=== PATIENT | female | born 1955 | race Caucasian/White ===

== ENCOUNTER → 2017-05-15 | Outpatient (CLI) | payer MEDICARE ==
--- NOTE | 2017-05-15 21:41 | US ---
EXAMINATION TYPE: US kidneys/renal and bladder DATE OF EXAM: 05/15/2017 COMPARISON: NONE CLINICAL HISTORY: N18.3 Chronic Kidney disease stage 3. EXAM MEASUREMENTS: Right Kidney: 11.0 x 5.3 x 4.5 cm Left Kidney: 11.6 x 5.1 x 3.9 cm Right Kidney: thin renal cortex, echogenic in appearance, hyperechoic area upper pole = 0.6cm Left Kidney: exophytic cystic area medial/upper pole = 1.1 x 1.1 x 1.3cm Bladder: appears wnl Bilateral Jets seen: yes IMPRESSION: 1. Possible nonshadowing renal stone upper pole right kidney. 2. Left renal cyst upper pole
== END | disposition home or self-care (01) ==
LOC: RADUSWWP 14:48
PROVIDERS: ATTEND Family Medicine
DX: N28.1 Cyst of kidney, acquired (principal); N18.3 Chronic kidney disease, stage 3 (moderate)
CPT/HCPCS: 76770

== ENCOUNTER → 2019-01-13 | Outpatient (CLI) | payer MEDICARE ==
--- NOTE | 2019-01-14 11:20 | MM ---
Reason for exam: screening (asymptomatic). History: Family history of breast cancer in maternal aunt and breast cancer in paternal aunt. Took other hormone for 4 years. Physical Findings: A clinical breast exam by your physician is recommended on an annual basis and results should be correlated with mammographic findings. MG 3D Screening Mammo W/Cad Bilateral CC, MLO, and XCCL view(s) were taken. There are scattered fibroglandular densities. No suspicious abnormality. ASSESSMENT: Negative, BI-RAD 1 RECOMMENDATION: Routine screening mammogram of both breasts in 1 year.
== END | disposition home or self-care (01) ==
LOC: RADMAMWWP 10:49
PROVIDERS: ATTEND Family Medicine
DX: Z12.31 Encounter for screening mammogram for malignant neoplasm of breast (principal)
CPT/HCPCS: 77063; 77067

== ENCOUNTER → 2020-08-14 | Outpatient (CLI) | payer MEDICARE ==
--- NOTE | 2020-08-14 15:41 | US ---
EXAMINATION TYPE: US kidneys/renal and bladder DATE OF EXAM: 08/14/2020 COMPARISON: Renal ultrasound October 13, 2017 CLINICAL HISTORY: N28.1 Cyst of kidney. Cyst of kidney EXAM MEASUREMENTS: Right Kidney: 9.8 x 4.2 x 4.8 cm Left Kidney: 11.5 x 4.6 x 3.9 cm Right Kidney: No hydronephrosis or masses seen Left Kidney: Cystic area upper pole 1.3 x 1.1 cm Bladder: Not fully distended. Bilateral Jets seen: No There is no evidence for hydronephrosis at this point in time. No nephrolithiasis is seen. Stable 1. 1 cm thin-walled cyst left kidney medially midpole level. Suboptimal evaluation of bladder due to poo r distention on current study. IMPRESSION: No hydronephrosis seen bilaterally. Stable tiny benign cyst left kidney.
== END | disposition home or self-care (01) ==
LOC: RADUSWWP 15:03
PROVIDERS: ATTEND Family Medicine
DX: N28.1 Cyst of kidney, acquired (principal)
CPT/HCPCS: 76770